=== PATIENT | male | born 1985 | race African-American/Black ===

== ENCOUNTER 2016-11-19 13:05 | Emergency (ER) | payer OTHER ==
[2016-11-19 13:23] VITALS: BP 134/63; PULSE 83; RESP 20; TEMP 97.6
--- NOTE | 2016-11-19 13:41 | ED ---
Lower Extremity Injury HPI - General Chief Complaint: Extremity Injury, Lower Stated Complaint: R leg injury. Time Seen by Provider: 11/19/16 13:27 Source: patient, RN notes reviewed Mode of arrival: ambulatory Limitations: no limitations - History of Present Illness Initial Comments: 31 yo male presents to the ER with cc of right chronic leg pain. Pain has been going on for years and states that he take [employer] [employer] 7.5 for this. 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 Patient states that he need something for the pain at this time. Patient denies any other symptoms. Patient denies any fall or injuries. Patient has been able to ambulate. Patient states that he is simply looking for pain medications that he can return to work. - Related Data Home Medications Medication Instructions Recorded Confirmed Gabapentin [Neurontin] 300 mg PO TID 11/19/16 11/19/16 QUEtiapine FUMARATE [SEROquel] 600 mg PO DAILY 11/19/16 11/19/16 buPROPion XL [Wellbutrin XL] 300 mg PO DAILY 11/19/16 11/19/16 Allergies Allergy/AdvReac Type Severity Reaction Status Date / Time acetaminophen [From Tylenol] AdvReac Nausea & Verified 11/19/16 13:24 Vomiting divalproex sodium AdvReac Anaphylaxis Verified 11/19/16 13:24 [From Depakote] ibuprofen [From Motrin] AdvReac Nausea & Verified 11/19/16 13:24 Vomiting Penicillins AdvReac Rash/Hives Verified 11/19/16 13:24 Review of Systems ROS Statement: Those systems with pertinent positive or pertinent negative responses have been documented in the HPI. ROS Other: All systems not noted in ROS Statement are negative. Past Medical History Past Medical History: No Reported History History of Any Multi-Drug Resistant Organisms: None Reported Past Surgical History: Appendectomy, Orthopedic Surgery Additional Past Surgical History / Comment(s): right leg. tooth pulled. left wrist Past Psychological History: Anxiety, Bipolar, Depression Smoking Status: Current every day smoker Past Alcohol Use History: Occasional Past Drug Use History: Marijuana General Exam Limitations: no limitations General appearance: alert, in no apparent distress Eye exam: Present: normal appearance, PERRL, EOMI. Absent: scleral icterus, conjunctival injection, periorbital swelling ENT exam: Present: normal exam, mucous membranes moist Respiratory exam: Present: normal lung sounds bilaterally. Absent: respiratory distress, wheezes, rales, rhonchi, stridor Cardiovascular Exam: Present: regular rate, normal rhythm, normal heart sounds. Absent: systolic murmur, diastolic murmur, rubs, gallop, clicks Extremities exam: Present: normal inspection, full ROM, tenderness (over the anterior patella minimal), normal capillary refill Back exam: Present: normal inspection Neurological exam: Present: alert, oriented X3 Psychiatric exam: Present: normal affect, normal mood Skin exam: Present: warm, dry, intact, normal color. Absent: rash Course Vital Signs 11/19/16 13:20 Temperature 97.6 F Pulse Rate 83 Respiratory 20 Rate Blood Pressure 134/63 O2 Sat by Pulse 98 Oximetry Medical Decision Making - Medical Decision Making 31-year-old male presents for right knee claiming states that he takes [place] [employer] 7.5 for this. A maps report was from that does not show any history of chronically been prescribed pain medication for his leg. Pressure to different providers giving him medication the last month. At this time we discussed that we will not be giving him narcotic pain medication. We discussed that he can take Tylenol for the pain which she has taken July as well as a Tylenol 3 so there is unlikely an ALLERGY to this. We discussed follow-up with his doctor and return parameters doctor in the area as well as orthopedics. Patient stated that he understood this and will be discharged.patient was offered an x- ray to further evaluate the pain but he does not want this. Disposition Clinical Impression: Right leg pain Disposition: HOME SELF-CARE Condition: Stable Instructions: Leg Pain (ED) Additional Instructions: Please use medication as discussed. Please follow up with family doctor if symptoms have not improved over the next two days. Please return to the emergency room if your symptoms increase or worsen or for any other concerns. Referrals: Cristiane Overton MD [STAFF PHYSICIAN] - 1-2 days Matt Roberts DO [Doctor of Osteopathic Medicine] - 1-2 days Time of Disposition: 13:41
== END 2016-11-19 13:52 | disposition home or self-care (01) ==
LOC: EC 13:05
DX: M79.661 Pain in right lower leg (principal); F31.9 Bipolar disorder, unspecified; F41.9 Anxiety disorder, unspecified; F17.200 Nicotine dependence, unspecified, uncomplicated; Z79.899 Other long term (current) drug therapy; Z88.6 Allergy status to analgesic agent; Z88.0 Allergy status to penicillin; Z88.8 Allergy status to other drugs, medicaments and biological substances
CPT/HCPCS: 99283